=== PATIENT | female | born 1980 | race Caucasian/White ===

== ENCOUNTER 2016-09-27 02:01 | Emergency (ER) | payer OTHER ==
[2016-09-27 03:16] VITALS: BP 124/81
== END 2016-09-27 03:16 | disposition home or self-care (01) ==
LOC: ED 02:01
DX: R05 Cough (principal); R50.9 Fever, unspecified; E07.9 Disorder of thyroid, unspecified

== ENCOUNTER 2020-02-26 14:41 | Emergency (ER) | payer OTHER ==
[~2020-02-26] VITALS: Ht 154.9 cm; Wt 60.8 kg
[2020-02-26 15:05] VITALS: BP 124/83; Ht 154.9 cm; Wt 60.8 kg
== END 2020-02-26 17:01 | disposition home or self-care (01) ==
LOC: ED 14:41
DX: S67.190A Crushing injury of right index finger, initial encounter (principal); S67.192A Crushing injury of right middle finger, initial encounter; Z90.49 Acquired absence of other specified parts of digestive tract; W22.8XXA Striking against or struck by other objects, initial encounter; Y93.89 Activity, other specified; Y92.89 Other specified places as the place of occurrence of the external cause; Y99.8 Other external cause status
CPT/HCPCS: 90715